=== PATIENT | male | born 1960 | race Caucasian/White ===

== ENCOUNTER 2020-07-31 16:14 | Emergency (ER) | payer OTHER ==
[2020-07-31 18:58] VITALS: BP 149/82
--- NOTE | 2020-07-31 18:58 | ED Physician Documentation ---
History of Present Illness - Stated complaint Stated Complaint: EYE IRRITATION/NOSE CONGESTION - Chief complaint Chief Complaint: Heent - Additonal information Additional information: Department with acute left eye discomfort and watering that began this afternoon when he was trimming [place] in front of his house. He thinks that he may have rubbed his eyes with gloves. He does have a history of contact lens use but is not wearing them today. He denies vision changes. Shortly after noticing watering and discomfort in the left eye the right eye also began to have watering. He tried to flush at home but was unable to therefore he came to the emergency department. Without any treatment here in the ER the symptoms have began to resolve. He also has some associated congestion and a runny nose. Review of Systems Constitutional: denies: Fever, Chills Eyes: reports: Discharge, Irritation. denies: Loss of vision, Decreased vision, Photophobia Ears: denies: Loss of hearing, Ear pain Nose: reports: Rhinorrhea / runny nose. denies: Congestion, Epistaxis Throat: denies: Dental pain / toothache Cardiac: denies: Chest pain / pressure, Palpitations Respiratory: denies: Dyspnea GI: denies: Abdominal Pain, Abdominal Swelling, Nausea, Vomiting : denies: Dysuria, Frequency, LMP Skin: denies: Rash, Lesions Musculoskeletal: denies: Neck pain, Joint pain Neurologic: denies: Generalized weakness, Focal weakness PD PAST MEDICAL HISTORY - Past Medical History Past Medical History: Yes Cardiovascular: Hypertension - Past Surgical History Past Surgical History: No - Present Medications Home Medications: Ambulatory Orders Medication Instructions Recorded Confirmed Erythromycin Base [Erythromycin 1 gm OP BID #1 oint...g. 07/31/20 Ophthalmic Ointment] - Allergies Allergies/Adverse Reactions: Allergies Allergy/AdvReac Type Severity Reaction Status Date / Time No Known Drug Allergies Allergy Verified 07/31/20 16:18 - Social History Does the pt smoke?: No Smoking Status: Never smoker Does the pt drink ETOH?: Yes Does the pt have substance abuse?: No - Immunizations Immunizations are current?: Yes PD ED PE EXPANDED - General General: Alert, No acute distress, Well developed/nourished - Eyes Eyes: PERRL, Normal accommodation, EOMI, Normal eyelids, No eyelid FB (everted). No: Eyelid swelling, Fluorescein uptake (Left eye with mild conjunctival injection. No pain with palpation of the eye. Extraocular movements intact. Foreseen uptake negative.) Results - Vitals Vitals: Vital Signs - 24 hr 07/31/20 16:18 Temperature 36.8 C Heart Rate 76 Respiratory 18 Rate Blood Pressure 152/90 H O2 Saturation 95 Oxygen O2 Source Room air PD MEDICAL DECISION MAKING - ED course Complexity details: d/w patient ED course: [age]-year-old male presents the emergency department with acute onset left eye watering and discomfort following trimming lavender at home. He had some associated runny nose. Shortly after the left eye discomfort began he also began to have watering in the right eye. He wondered if he may have had an allergic reaction but wanted to make sure that he did not have any dust or debris in the eye. His fluorescein stain was negative. No signs of abrasion or ulceration. Without any treatment the watering and discomfort had begun to resolve on its own here in the ED. I did gently flush each eye with 60 mL of saline. I suspect that he most likely has a chemical conjunctivitis and will prescribe a lubricating ointment and advised that he take an [id number] antihistamine this evening. He was advised not to wear his contact lenses for the next 5 days. Return to the emergency department if symptoms worsen. Departure - Departure Disposition: 01 Home, Self Care Clinical Impression: Chemical conjunctivitis of left eye Condition: Critical Instructions: ED Allergic Conjunctivitis Prescriptions: Erythromycin Base [Erythromycin Ophthalmic Ointment] 1 gm OP BID #1 oint...g. Comments: I think you most likely have an allergic conjunctivitis of your eyes following trimming of the outdoor plants. We did not see any corneal abrasion or ulceration today. I recommend that you use the lubricating ointment 2-3 times a day and I would also recommend that you take an [id number] antihistamine tonight such as Benadryl to help with the watering. If at any point you find that you develop sudden eye pain, have loss of vision, the watering does not improve or you feel your symptoms are not well managed please return to the emergency department. I also recommend you follow-up closely with your switching clerk. Please do not wear any contact lenses for the next 5 days until the symptoms resolve. When you do wear contact lenses again please make sure that you place a new pair into the eyes
== END 2020-07-31 19:18 | disposition home or self-care (01) ==
LOC: ED 16:14
DX: H10.212 Acute toxic conjunctivitis, left eye (principal); T50.905A Adverse effect of unspecified drugs, medicaments and biological substances, initial encounter; I10 Essential (primary) hypertension
CPT/HCPCS: 99282; 99283